=== PATIENT | female | born 1980 | race African-American/Black ===

== ENCOUNTER 2016-08-23 18:54 | Emergency (ER) | payer OTHER ==
--- NOTE | 2016-08-23 19:24 | ER Document Report ---
ED Medical Screen (RME) - General Chief Complaint: Leg Pain Stated Complaint: LEFT LEG PAIN, SWELLING Time Seen by Provider: 08/23/16 19:08 Mode of Arrival: Ambulatory Information source: Patient TRAVEL OUTSIDE OF THE [place] 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 with similar symptoms, is not currently taking any blood thinners, she does not take any oral control or other hormone replacement , no recent surgeries, no recent injuries, prolonged periods of immobilization, she vapes - Related Data Allergies/Adverse Reactions: Sulfa (Sulfonamide Antibiotics) Allergy (Mild, Verified 05/03/11 16:05) Iodinated Contrast- Oral and IV Dye Allergy (Verified 05/28/11 10:14) latex [Latex] Allergy (Verified 05/03/11 16:05) Penicillins Allergy (Verified 05/03/11 16:05) Past Medical History - Past Medical History Cardiac Medical History: Reports: Hx Hypertension, Hx Heart Murmur - as child Denies: Hx Coronary Artery Disease, Hx Heart Attack Pulmonary Medical History: Reports: Hx Asthma, Hx Bronchitis Denies: Hx COPD, Hx Pneumonia, Hx Tuberculosis Neurological Medical History: Denies: Hx Cerebrovascular Accident, Hx Seizures Renal/ Medical History: Reports: Hx Kidney Stones - , Hx Ovarian Cysts. Denies: Hx Peritoneal Dialysis GI Medical History: Reports: Hx Irritable Bowel Musculoskeltal Medical History: Denies Hx Arthritis Psychiatric Medical History: Reports: Hx Depression - post pardum Past Surgical History: Reports: Hx Tubal Ligation. Denies: Hx Pacemaker - Immunizations Hx Diphtheria, Pertussis, Tetanus Vaccination: Yes
[2016-08-23] MEDS ORDERED: HYDROCODONE/ACETAMINOPHEN 5-325 MG TABLET PO ONE (20:32)
--- NOTE | 2016-08-23 20:38 | ER Document Report ---
ED Extremity Problem, Lower - General Chief Complaint: Leg Pain Stated Complaint: LEFT LEG PAIN, SWELLING Time Seen by Provider: 08/23/16 19:08 Mode of Arrival: Ambulatory Notes: Patient is a 35-year-old female who comes emergency department for chief complaint of left leg pain, pain is mainly around her left knee, she states symptoms started about 2 days ago. She states she has some discomfort when walking and it feels like there is "ice in her knee". Patient has a history of DVT 4, she is not on a blood thinner, she has not been tested for coagulation disorder, 2 blood clots were during , one was while on control, she denies any recent travel, surgery. She has had a tubal ligation. She vapes. LMP last week. TRAVEL OUTSIDE OF THE [place] IN LAST 30 DAYS: No - Related Data Allergies/Adverse Reactions: Sulfa (Sulfonamide Antibiotics) Allergy (Mild, Verified 05/03/11 16:05) Iodinated Contrast- Oral and IV Dye Allergy (Verified 05/28/11 10:14) latex [Latex] Allergy (Verified 05/03/11 16:05) Penicillins Allergy (Verified 05/03/11 16:05) Past Medical History - General Information source: Patient - Social History Smoking Status: Current Every Day Smoker - vaporizer Frequency of alcohol use: None Drug Abuse: None Lives with: Family Family History: Reviewed & Not Pertinent - Past Medical History Cardiac Medical History: Reports: Hx Hypertension, Hx Heart Murmur - as child Denies: Hx Coronary Artery Disease, Hx Heart Attack Pulmonary Medical History: Reports: Hx Asthma, Hx Bronchitis Denies: Hx COPD, Hx Pneumonia, Hx Tuberculosis Neurological Medical History: Denies: Hx Cerebrovascular Accident, Hx Seizures Renal/ Medical History: Reports: Hx Kidney Stones - , Hx Ovarian Cysts. Denies: Hx Peritoneal Dialysis GI Medical History: Reports: Hx Irritable Bowel Musculoskeltal Medical History: Denies Hx Arthritis Psychiatric Medical History: Reports: Hx Depression - post pardum Past Surgical History: Reports: Hx Tubal Ligation. Denies: Hx Pacemaker - Immunizations Hx Diphtheria, Pertussis, Tetanus Vaccination: Yes Hx Pneumococcal Vaccination: 08/27/11 Review of Systems - Review of Systems Constitutional: No symptoms reported EENT: No symptoms reported Cardiovascular: See HPI Respiratory: No symptoms reported Gastrointestinal: No symptoms reported Genitourinary: No symptoms reported Female Genitourinary: No symptoms reported Musculoskeletal: See HPI Skin: No symptoms reported Hematologic/Lymphatic: No symptoms reported Neurological/Psychological: No symptoms reported Physical Exam - Vital signs Vitals: Temp Pulse Resp BP Pulse Ox 98.9 F 79 18 139/95 H 100 08/23/16 19:04 08/23/16 19:04 08/23/16 19:04 08/23/16 19:04 08/23/16 19:04 Interpretation: Normal - General General appearance: Appears well, Alert In distress: None - HEENT Head: Normocephalic, Atraumatic Eyes: Normal Pupils: PERRL - Respiratory Respiratory status: No respiratory distress Chest status: Nontender Breath sounds: Normal Chest palpation: Normal - Cardiovascular Rhythm: Regular. No: Tachycardia Heart sounds: Normal auscultation, S1 appreciated, S2 appreciated Murmur: No - Abdominal Inspection: Normal Distension: No distension Bowel sounds: Normal Tenderness: Nontender. No: Tender, Guarding Organomegaly: No organomegaly - Back Back: Normal, Nontender. No: Tender - Extremities General upper extremity: Normal inspection, Nontender, Normal ROM, Normal strength General lower extremity: Other - Left knee with what appears to be minimal swelling around the joint, no abnormal heat or erythema noted, range of motion is intact, normal distal neurovascular exam, patient has some pain with bearing weight on the joint but examination is normal otherwise. - Neurological Neuro grossly intact: Yes Cognition: Normal Orientation: AAOx4 [place]and[place] Coma Scale Eye Opening: Spontaneous Valentina Coma Scale Verbal: Oriented Valentina Coma Scale Motor: Obeys Commands Valentina Coma Scale Total: 15 Speech: Normal Motor strength normal: LUE, RUE, LLE, RLE Sensory: Normal - Psychological Associated symptoms: Normal affect, Normal mood - Skin Skin Temperature: Warm Skin Moisture: Dry Skin Color: Normal Course - Re-evaluation Re-evalutation: Doppler ultrasound performed, negative for DVT, however her shows greater saphenous vein reflux which could be the cause of patient's symptoms of swelling and discomfort. Patient has normal distal neurovascular exam, there is no abnormal erythema, there is no abnormal heat to the area, no significant pain noted on examination although patient does have discomfort when walking. Discussed with Dr. Dawson. Patient will be treated with crutches, Gil wrap of the swollen area, he recommends patient follow up with primary care for potential referral to vascular surgery for management of the reflux abnormality , patient will be treated symptomatically as well. Discussed return precautions , patient states understanding and agreement. - Vital Signs Vital signs: Temp Pulse Resp BP Pulse Ox 98.4 F 65 20 138/91 H 98 08/23/16 23:55 08/23/16 23:55 08/23/16 23:55 08/23/16 23:55 08/23/16 23:55 Procedures - Immobilization left knee Pre-Proc Neuro Vasc Exam: Normal Immobilizer type: Gil wrap Performed by: RN Post-Proc Neuro Vasc Exam: Normal Alignment checked and good: Yes Discharge - Discharge Clinical Impression: Left leg swelling Condition: Stable Disposition: HOME, SELF-CARE Additional Instructions: The Doppler shows greater saphenous vein reflux, this is most likely the cause of your swelling and repeated symptoms, the imaging is negative for a blood clot. I recommend using the Gil wrap, use the crutches if needed, take the medications provided, follow-up with your primary care and discuss vascular surgery referral for potential additional treatments. Return to emergency department for any concerning or worsening symptoms including severe swelling, severe pain, redness or heat to the area, fever, etc. Prescriptions: Hydrocodone/Acetaminophen [[place] 5-325 Tablet] 1 - 2 each PO Q4H PRN #10 tablet PRN Reason: Naproxen [Naprosyn 375 Mg Tablet] 375 mg PO BID #20 tablet Referrals: SONIA RODRIGUEZ MD [Primary Care Provider] - Follow up as needed
[2016-08-23 23:57] VITALS: BP 138/91
--- NOTE | 2016-08-24 09:09 | XCELERA REPORT ---
[address] [address] Lower Extremity Venous Evaluation Name: TWYLA SUÁREZ Age: 35 yrs Gender: Female : 1980 Patient Status: Emergency Patient Location: ER Study Date: 08/23/2016 10:57 PM Procedure: Color flow and duplex imaging of the veins of the left lower extremity as well as the right Common Femoral vein. Reason For Study: left lower extremity Ordering Physician: BARBARA BROWN Performed By: Sampson Simmons Right Sided Venous Evaluation The right common femoral vein is fully compressible. Spontaneous and phasic flow is present in the right common femoral vein. Left Sided Venous Evaluation Significant reflux in the Greater Saphenous vein.. Otherwise normal vessel filling wall to wall, compression and augmentation as well as Colour flow down to the infrageniculate veins. Critical Findings Called in to Daniel Portillo at about 2300. Interpretation Summary No duplex evidence of DVT or obstruction in the left lower extremity nor in the right Common Femoral vein. Significant reflux in the left greater Saphenous vein may be the source of symptoms. Vascular, elective evaluation ,may be helpful. : BARBARA BROWN > Regan Orlando
== END 2016-08-23 23:57 | disposition home or self-care (01) ==
LOC: ER 18:54
DX: M79.89 Other specified soft tissue disorders (principal); I87.8 Other specified disorders of veins; M25.562 Pain in left knee; Z86.718 Personal history of other venous thrombosis and embolism; I10 Essential (primary) hypertension; J45.909 Unspecified asthma, uncomplicated; F17.290 Nicotine dependence, other tobacco product, uncomplicated; Z88.2 Allergy status to sulfonamides; Z91.041 Radiographic dye allergy status; Z91.040 Latex allergy status; Z88.0 Allergy status to penicillin
CPT/HCPCS: 93971; 99284

== ENCOUNTER 2019-07-19 16:58 | Emergency (ER) | payer OTHER ==
--- NOTE | 2019-07-19 17:20 | ER Document Report ---
ED Medical Screen (RME) - General Chief Complaint: Swallowed Foreign Body Stated Complaint: FISH BONE STUCK IN THROAT Time Seen by Provider: 07/19/19 17:10 Primary Care Provider: SONIA RODRIGUEZ MD [Primary Care Provider] - Follow up as needed TRAVEL OUTSIDE OF THE [place] IN LAST 30 DAYS: No - HPI Notes: 07/19/19 17:18 38-year-old female presents emergency room after feeling like she has a fishbone stuck in her throat from yesterday after eating trial last night for dinner. Patient took a Benadryl to see if this was helpful, which it wasn't. She tried eating white bread to see if this would help the bone go down, but she feels like it hasn't. Patient states now she feels uncomfortable with breathing. No drooling, able to manage her secretions. No fevers or chills. Vaccinations are up-to-date for age. Last menstrual cycle was 2 weeks ago. I have greeted and performed a rapid initial assessment of this patient. A comprehensive ED assessment and evaluation of the patient, analysis of test results and completion of the medical decision making process will be conducted by additional ED providers. PHYSICAL EXAMINATION: GENERAL: Well-appearing, well-nourished and in no acute distress. HEAD: Atraumatic, normocephalic. EYES: Pupils equal round extraocular movements intact, conjunctiva are normal. NECK: Normal range of motion CV: s1, s2 regular LUNGS: No respiratory distress - Related Data Allergies/Adverse Reactions: Sulfa (Sulfonamide Antibiotics) Allergy (Mild, Verified 07/19/19 17:12) Iodinated Contrast Media Allergy (Verified 07/19/19 17:12) latex [Latex] Allergy (Verified 07/19/19 17:12) Penicillins Allergy (Verified 07/19/19 17:12) Past Medical History - Past Medical History Cardiac Medical History: Reports: Hx Hypertension, Hx Heart Murmur - as child Denies: Hx Coronary Artery Disease, Hx Heart Attack Pulmonary Medical History: Reports: Hx Asthma, Hx Bronchitis Denies: Hx COPD, Hx Pneumonia, Hx Tuberculosis Neurological Medical History: Denies: Hx Cerebrovascular Accident, Hx Seizures Renal/ Medical History: Reports: Hx Kidney Stones - , Hx Ovarian Cysts. Denies: Hx Peritoneal Dialysis GI Medical History: Reports: Hx Irritable Bowel Musculoskeltal Medical History: Denies Hx Arthritis Psychiatric Medical History: Reports: Hx Depression - post pardum Past Surgical History: Reports: Hx Tubal Ligation. Denies: Hx Pacemaker - Immunizations Hx Diphtheria, Pertussis, Tetanus Vaccination: Yes Physical Exam - Vital signs Vitals: Temp Pulse Resp BP Pulse Ox 98.2 F 82 16 140/94 H 98 07/19/19 17:05 07/19/19 17:05 07/19/19 17:05 07/19/19 17:05 07/19/19 17:05 Course - Vital Signs Vital signs: Temp Pulse Resp BP Pulse Ox 98.2 F 82 16 140/94 H 98 07/19/19 17:05 07/19/19 17:05 07/19/19 17:05 07/19/19 17:05 07/19/19 17:05 Doctor's Discharge - Discharge Referrals: SONIA RODRIGUEZ MD [Primary Care Provider] - Follow up as needed
--- NOTE | 2019-07-19 17:41 | RADIOLOGY REPORT (SQ) ---
EXAM DESCRIPTION: CHEST 2 VIEWS IMAGES COMPLETED DATE/TIME: 07/19/2019 5:31 pm REASON FOR STUDY: thinks fish bone stuck in throat x1d COMPARISON: 08/26/2011 EXAM PARAMETERS: NUMBER OF VIEWS: two views TECHNIQUE: Digital Frontal and Lateral radiographic views of the chest acquired. RADIATION DOSE: NA LIMITATIONS: none FINDINGS: LUNGS AND PLEURA: No opacities, masses or pneumothorax. No pleural effusion. MEDIASTINUM AND HILAR STRUCTURES: No masses or contour abnormalities. HEART AND VASCULAR STRUCTURES: Heart normal size. No evidence for failure. BONES: The osseous structures are stable in appearance. Marked dextroconvex coal thoracic spine. HARDWARE: None in the chest. OTHER: No other significant finding. IMPRESSION: 1. No significant interval changes since the prior examination dated 08/26/2011. No acu te findings. TECHNICAL DOCUMENTATION: JOB ID: [id number] 2010 [employer]- All Rights Reserved Reading location - IP/workstation name: [email or web address]
--- NOTE | 2019-07-19 17:44 | RADIOLOGY REPORT (SQ) ---
EXAM DESCRIPTION: SOFT TISSUE NECK IMAGES COMPLETED DATE/TIME: 07/19/2019 5:31 pm REASON FOR STUDY: thinks fish bone stuck in throat x1d COMPARISON: None. NUMBER OF VIEWS: Two views. TECHNIQUE: AP and lateral radiographic image of the soft tissues of the neck. LIMITATIONS: None. FINDINGS: EPIGLOTTIS: Normal. Contour normal. Aryepiglottic folds normal. PREVERTEBRAL SOFT TISSUES: Normal. No soft tissue swelling. SUBGLOTTIC AREA: Normal. No narrowing. RETROPHARYNGEAL SPACE: Normal. No soft tissue masses. BONES: Reversal of cervical lordosis at C4 may be related to spasm. Bilateral cervical ribs. LUNG APICES: Normal. OTHER: No radiopaque foreign body. No other significant finding. IMPRESSION: 1. NEGATIVE STUDY OF THE SOFT TISSUES OF THE NECK. 2. Further evaluation with esophagram maybe helpful in view of the given clinical history. TECHNICAL DOCUMENTATION: JOB ID: [id number] 2010 [employer]- All Rights Reserved Reading location - IP/workstation name: [email or web address]
[2019-07-19] MEDS ORDERED: LIDOCAINE 2% VISCOUS SOLN 15 ML UDCUP PO ONE ×2 (19:21→21:10)
--- NOTE | 2019-07-19 20:14 | RADIOLOGY REPORT (SQ) ---
EXAM DESCRIPTION: CT NECK CHEST WITHOUT IV CONTRAST COMPLETED DATE/TME: 07/19/2019 19:20 CLINICAL HISTORY: 38 years, Female, foreign body COMPARISON: None. TECHNIQUE: Noncontrast CT of the neck/chest was acquired. Coronal and sagittal reformations were created. Images stored on PACS. All CT scanners at this facility use dose modulation, iterative reconstruction, and/or weight based dosing when appropriate to reduce radiation dose to as low as reasonably achievable (ALARA). [facility]: Dose Right [facility]: CareDose [facility]: Dose Right [facility]: Teradose 4D [facility]: [employer] LIMITATIONS: None. FINDINGS: Limited evaluation of the lung apices reveals no suspicious finding. Thyroid gland appears normal. Hypopharynx, oropharynx, and nasopharynx appear normal. Bilateral parotid and submandibular glands appear normal. No suspicious deep cervical lymphadenopathy is appreciated. Globes and orbits show no suspicious finding. Visualized portions of the brain parenchyma show no gross abnormality though assessment is significantly limited secondary to photon starvation. Bone windows show reversal of the normal cervical lordosis, either related to positioning and/or muscle spasm. Otherwise, no significant generative changes are evident. No definite retained radiopaque foreign bodies are clearly identified within the visualized portions of the cervical or thoracic esophagus. IMPRESSION: No definite retained radiopaque foreign body visible. TECHNICAL DOCUMENTATION: Quality ID # [id number]: Final reports with documentation of one or more dose reduction techniques (e.g., Automated exposure control, adjustment of the mA and/or kV according to patient size, use of iterative reconstruction technique) copyright 2011 [employer]- All Rights Reserved
[2019-07-19 22:02] VITALS: BP 155/112
--- NOTE | 2019-07-20 00:06 | ER Document Report ---
Entered by COLTEN ROQUE SCRIBE 07/19/191913 Acting as scribe for:SHERRY LITTLE DO ED Foreign Body - General Chief Complaint: Swallowed Foreign Body Stated Complaint: FISH BONE STUCK IN THROAT Time Seen by Provider: 07/19/19 17:10 Primary Care Provider: SONIA RODRIGUEZ MD [Primary Care Provider] - Follow up as needed NATASHA UMANZOR MD [ACTIVE STAFF] - Follow up tomorrow (Please call in the morning to be seen tomorrow.) Mode of Arrival: Ambulatory Information source: Patient Notes: This 38 year old female patient presents to the emergency department today with complaints of a sensation that something is stuck in her throat. Patient reports that yesterday evening at around 5:00 PM yesterday she was eating trout and pork skin and about 20 minutes after eating last night she began having a sensation that something was stuck in her throat. Patient is unable to describe this sensation, she just keeps repeating "it feels like the fish bone is stuck here", and points to her throat. Patient denies fevers, cough, congestion, or sore throat. TRAVEL OUTSIDE OF THE [place] IN LAST 30 DAYS: No - Related Data Allergies/Adverse Reactions: Sulfa (Sulfonamide Antibiotics) Allergy (Mild, Verified 07/19/19 17:12) Iodinated Contrast Media Allergy (Verified 07/19/19 17:12) latex [Latex] Allergy (Verified 07/19/19 17:12) Penicillins Allergy (Verified 07/19/19 17:12) Home Medications: amlodipine, labetlol, vitamin Past Medical History - General Information source: Patient - Social History Smoking Status: Current Every Day Smoker Cigarette use (# per day): Yes Chew tobacco use (# tins/day): No Frequency of alcohol use: Social Drug Abuse: None Lives with: Family Family History: Reviewed & Not Pertinent Patient has homicidal ideation: No - Past Medical History Cardiac Medical History: Reports: Hx Hypertension, Hx Heart Murmur Pulmonary Medical History: Reports: Hx Asthma, Hx Bronchitis Renal/ Medical History: Reports: Hx Kidney Stones - , Hx Ovarian Cysts GI Medical History: Reports: Hx Irritable Bowel Psychiatric Medical History: Reports: Hx Depression Past Surgical History: Reports: Hx Abdominal Surgery - hernia, Hx Neurologic Surgery - chiari malformation 2018, Hx Tubal Ligation - Immunizations Hx Diphtheria, Pertussis, Tetanus Vaccination: Yes Hx Pneumococcal Vaccination: 08/27/11 Review of Systems - Review of Systems Constitutional: No symptoms reported EENT: See HPI, Other - sensation of foreign body in throat Cardiovascular: No symptoms reported Respiratory: No symptoms reported Gastrointestinal: No symptoms reported Genitourinary: No symptoms reported Female Genitourinary: No symptoms reported Musculoskeletal: No symptoms reported Skin: No symptoms reported Hematologic/Lymphatic: No symptoms reported Neurological/Psychological: No symptoms reported -: Yes All other systems reviewed and negative Physical Exam - Vital signs Vitals: Temp Pulse Resp BP Pulse Ox 98.2 F 82 16 140/94 H 98 07/19/19 17:05 07/19/19 17:05 07/19/19 17:05 07/19/19 17:05 07/19/19 17:05 - Notes Notes: Physical Exam: General: Alert, appears uncomfortable. HEENT: Normocephalic. Atraumatic. PERRL. Extraocular movements intact. Oropharynx clear. No foreign body that can be visualized. Neck: Supple. Non-tender. Respiratory: No respiratory distress. Clear and equal breath sounds bilaterally. Cardiovascular: Regular rate and rhythm. Abdominal: Normal Inspection. Non-tender. No distension. Normal Bowel Sounds. Back: No gross abnormalities. Extremities: Moves all four extremities. Upper extremities: Normal inspection. Normal ROM. Lower extremities: Normal inspection. No edema. Normal ROM. Neurological: Normal cognition. AAOx4. Normal speech. Psychological: Normal affect. Normal Mood. Skin: Warm. Dry. Normal color. Course - Re-evaluation Re-evalutation: Patient is a 38-year-old female who was eating fish last night and then felt pain in her throat. Feels like there is a bone stuck in there. No acute findings on x-ray. No acute findings on CT. Patient is handling secretions and is having no difficulty breathing or talking. Ear nose and throat clinic is open in the morning. It is the time of the COVID-19 pandemic and I have confirmed that this office is indeed open in the morning. Patient is instructed to call there for an appointment as she will likely need a direct visualization and to return if she has any worsening or concerning symptoms. She is agreeable to this plan. Discussed transfer for ear nose and throat although I do not feel that that is appropriate at this time. She will be discharged home with a prescription for clindamycin and viscous lidocaine. She is agreeable to this plan. Taking p.o. Stable for discharge. Understands and agrees with this. - Vital Signs Vital signs: Temp Pulse Resp BP Pulse Ox 98.7 F 84 18 155/112 H 100 07/19/19 22:01 07/19/19 22:01 07/19/19 22:01 07/19/19 22:01 07/19/19 22:01 Discharge - Discharge Clinical Impression: Foreign body sensation in throat Condition: Stable Disposition: HOME, SELF-CARE Instructions: Swallowed Foreign Body ([facility]) Additional Instructions: Please see the ENT tomorrow. Call for an appointment in the morning. Tell the office you were seen in the ER today. Prescriptions: Clindamycin Palmitate HCl 150 mg PO TID #150 soln.recon Fluconazole [Diflucan] 150 mg PO DAILY #2 tablet Lidocaine HCl [Xylocaine 2% Viscous Soln 15 ml Udcup] 15 ml MM TIDP PRN #100 udc PRN Reason: Referrals: SONIA RODRIGUEZ MD [Primary Care Provider] - Follow up as needed NATASHA UMANZOR MD [ACTIVE STAFF] - Follow up tomorrow (Please call in the morning to be seen tomorrow.) I personally performed the services described in the documentation, reviewed and edited the documentation which was dictated to the scribe in my presence, and it accurately records my words and actions.
== END 2019-07-19 22:03 | disposition home or self-care (01) ==
LOC: ER 16:58
DX: R09.89 Other specified symptoms and signs involving the circulatory and respiratory systems (principal); R07.0 Pain in throat; I10 Essential (primary) hypertension; F17.210 Nicotine dependence, cigarettes, uncomplicated; Z88.2 Allergy status to sulfonamides; Z91.041 Radiographic dye allergy status; Z91.040 Latex allergy status; Z88.0 Allergy status to penicillin; Z79.899 Other long term (current) drug therapy
CPT/HCPCS: 99284; 71046; 70360; 70490; J3490